=== PATIENT | male | born 1985 | race African-American/Black ===

== ENCOUNTER 2022-12-09 18:36 | Emergency (ER) | payer OTHER ==
[~2022-12-09] VITALS: Ht 177.8 cm; Wt 120.0 kg
[2022-12-09 19:15] VITALS: BP 137/77
[2022-12-09] MEDS ORDERED: TETANUS-DIPTH-ACEL PERTUSSIS 0.5ML SYR Tdap IM ONE (19:30)
[2022-12-09] MEDS ORDERED: NEOMYCIN-BACITRACIN-POLYM UNITDOSE PKG TOP OINT TOP ONE (19:30)
[2022-12-09] MEDS ORDERED: CEPHALEXIN 250 MG CAP PO ONE (19:30)
[2022-12-09] MEDS ORDERED: CEPH500C PO (19:32)
[2022-12-09] MEDS ORDERED: MUPI2OIN2 EX (19:32)
[2022-12-09] MEDS ORDERED: IBU600T PO (19:32)
== END 2022-12-09 19:43 | disposition home or self-care (01) ==
LOC: ER 18:36
DX: S91.331A Puncture wound without foreign body, right foot, initial encounter (principal); Z88.6 Allergy status to analgesic agent; W50.0XXA Accidental hit or strike by another person, initial encounter; Y93.89 Activity, other specified; Y92.89 Other specified places as the place of occurrence of the external cause; Y99.8 Other external cause status
CPT/HCPCS: 90471; 90715